=== PATIENT | female | born 1970 | race Caucasian/White ===

== ENCOUNTER 2016-11-14 10:17 | Inpatient (IN) | payer OTHER ==
[~2016-11-14] VITALS: Ht 149.9 cm; Wt 92.0 kg
[2016-11-24] MEDS ORDERED: PROP40TA3 PO (15:10)
[2016-11-24] MEDS ORDERED: GABA300C5 PO (15:10)
[2016-11-24] MEDS ORDERED: VENL75TA PO (15:10)
[2016-11-24] MEDS ORDERED: TOPA100T11 PO (15:10)
[2016-11-24] MEDS ORDERED: ZOCO40TA PO (15:10)
[2016-11-24] MEDS ORDERED: PHEN1TAB PO (15:10)
[2016-11-24] MEDS ORDERED: CHOL1TAB16 PO (15:10)
[2016-11-24] MEDS ORDERED: FEXO180T PO (15:10)
[2016-11-24] MEDS ORDERED: IMIT50TA PO (15:17)
[2016-11-27] MEDS ORDERED: LACTATED RINGER'S 1000 ML IV SCH (06:30)
[2016-11-27] MEDS ORDERED: SCOPOLAMINE 1.5 MG PATCH T-DERMAL SCH (06:30)
[2016-11-27] MEDS ORDERED: INSULIN HUMAN REGULAR 1,000 UNITS/10 ML VIAL SQ PRN (06:30)
[2016-11-27] MEDS ORDERED: ACETAMINOPHEN 1000 MG/100 ML VIAL IV SCH (06:30)
[2016-11-27] MEDS ORDERED: SODIUM CHLORID 0.9% 500 ML IV SCH (06:30)
[2016-11-27] MEDS ORDERED: APREPITANT 40 MG CAP PO SCH (06:30)
[2016-11-27] MEDS ORDERED: ONDANSETRON HCL 4 MG/2 ML VIAL IV PUSH SCH (06:30)
[2016-11-27] MEDS ORDERED: METOPROLOL TARTRATE 25 MG TAB PO PRN (06:30)
[2016-11-27] MEDS ORDERED: ceFAZolin 2 GM PREMIX 50 ML IV SCH (06:30)
[2016-11-27 07:08] VITALS: BP 120/73; PULSE 69; RESP 20; TEMP 97.9; O2SAT 98
[2016-11-27] MEDS ORDERED: FAMOTIDINE 20 MG/2 ML VIAL ONE (07:55)
[2016-11-27] MEDS ORDERED: MIDAZOLAM HCL 2 MG/2 ML VIAL ONE ×2 (07:55→10:04)
[2016-11-27] MEDS ORDERED: metroNIDAZOLE 500 MG INJ 100 ML IV ONE (08:38)
[2016-11-27] MEDS ORDERED: BUPIVACAINE/EPINEPHRINE 0.25% 50 ML VIAL INFIL ONE (08:43)
[2016-11-27] MEDS ORDERED: METHYLENE BLUE 10 MG/ML VIAL NG ONE (09:00)
[2016-11-27] MEDS: D5-1/2 NS + KCL 20 MEQ INJ 1,000 ML IV SCH ×4 (09:25→20:53)
[2016-11-27] MEDS ORDERED: Post-op Orders (for Pharmacy) MISC XX ONE (09:30)
[2016-11-27] MEDS ORDERED: diphenhydrAMINE HCL ELIXIR 12.5 MG/5 ML CUP PO PRN (09:30)
[2016-11-27] MEDS ORDERED: SODIUM CHLORIDE 0.9% FLUSH 5 ML FLUSH IVF PRN (09:30)
[2016-11-27] MEDS ORDERED: ENALAPRILAT 1.25 MG/ML VIAL IV PUSH PRN (09:30)
[2016-11-27] MEDS ORDERED: diphenhydrAMINE HCL 50 MG/ML VIAL IV PRN (09:30)
[2016-11-27] MEDS ORDERED: ONDANSETRON HCL 4 MG/2 ML VIAL IV PRN (09:30)
[2016-11-27] MEDS ORDERED: MORPHINE SULFATE 30 MG/30 ML PCA IV SCH (09:30)
[2016-11-27] MEDS ORDERED: ACETAMINOPHEN 325MG/HYDROcodone 7.5MG/15ML UDC PO PRN ×2 (09:30)
[2016-11-27] MEDS ORDERED: NALOXONE HCL 0.4 MG/ML AMP IV PRN (09:30)
[2016-11-27] MEDS ORDERED: DO NOT ADM ANY ANTICOAGULANT DRUGS XX PRN (09:56)
[2016-11-27] MEDS ORDERED: *PROMETHAZINE 25 MG/ML VIAL PERIprocedural use ONLY ONE (10:25)
[2016-11-27] MEDS: RESP: ALBUTEROL 2.5 MG/3 ML NEB (SCH) INH ×3 (10:40→19:19)
[2016-11-27] MEDS ORDERED: PROPOFOL 200 MG/20 ML AMP IV ONE (10:48)
[2016-11-27] MEDS ORDERED: NEOSTIGMINE 3 MG/3 ML SYR IV ONE (10:48)
[2016-11-27] MEDS ORDERED: ONDANSETRON HCL 4 MG/2 ML VIAL IV PUSH ONE (10:48)
[2016-11-27] MEDS ORDERED: ePHEDrine/NS 25 MG/5 ML SYR IV ONE (10:48)
[2016-11-27] MEDS: METOCLOPRAMIDE HCL 10 MG/2 ML VIAL IVS SCH ×3 (10:51→20:53)
[2016-11-27] MEDS ORDERED: GLYCOPYRROLATE 0.2 MG/ML VIAL ONE (11:27)
[2016-11-27] MEDS ORDERED: GLYCOPYRROLATE 0.2 MG/ML VIAL IV ONE (12:00)
[2016-11-27 12:52] VITALS: BP 114/71; PULSE 73; RESP 17; TEMP 95.3; O2SAT 97
[2016-11-27] MEDS ORDERED: ACETAMINOPHEN 1000 MG/100 ML VIAL IV PRN (13:00)
[2016-11-27] MEDS: PCA - TOTAL MG MORPHINE DELIVERED PER SHIFT SCH ×2 (14:00→21:01)
[2016-11-27 16:00] VITALS: BP 118/53; PULSE 74; RESP 16; TEMP 94.3; O2SAT 97
[2016-11-27] MEDS: ONDANSETRON HCL 4 MG/2 ML VIAL IV PRN (17:09)
[2016-11-27 20:35] VITALS: BP 123/72; PULSE 82; RESP 17; TEMP 98.2; O2SAT 93
[2016-11-27] MEDS: SODIUM CHLORIDE 0.9% FLUSH 5 ML FLUSH IVF SCH (20:53)
[2016-11-28] VITALS (10 sets, daily range): BP systolic 113–138; BP diastolic 63–77; PULSE 71–84; RESP 15–20; TEMP 96.5–99; O2SAT 93–97
[2016-11-28] MEDS: RESP: ALBUTEROL 2.5 MG/3 ML NEB (SCH) INH ×7 (00:24→23:54)
[2016-11-28] MEDS: D5-1/2 NS + KCL 20 MEQ INJ 1,000 ML IV SCH ×4 (01:03→17:25)
[2016-11-28] MEDS: METOCLOPRAMIDE HCL 10 MG/2 ML VIAL IVS SCH (04:44)
[2016-11-28] MEDS: SUCRALFATE 1 GM/10 ML CUP PO SCH ×3 (04:44→16:39)
[2016-11-28] MEDS: PCA - TOTAL MG MORPHINE DELIVERED PER SHIFT SCH ×3 (04:46→22:00)
[2016-11-28] MEDS: SODIUM CHLORIDE 0.9% FLUSH 5 ML FLUSH IVF SCH ×2 (09:00→22:48)
[2016-11-28] MEDS: PANTOPRAZOLE SOD 40 MG DELAYED RELEASE TAB PO SCH (09:00)
[2016-11-28] MEDS: ENOXAPARIN SODIUM 40 MG/0.4 ML SYRINGE SQ SCH (09:08)
[2016-11-28] MEDS: PANTOPRAZOLE SODIUM 40 MG VIAL IVP SCH (09:09)
[2016-11-28] MEDS: ONDANSETRON HCL 4 MG/2 ML VIAL IV PRN ×2 (09:09→16:40)
[2016-11-28 10:57] LABS: AUTOMATED NEUTROPHIL # 11.2 TH/MM3 (1.8-7.7); BASOPHIL % 0.3 % (0.0-2.0); EOSINOPHIL % 0.1 % (0.0-4.0); HEMATOCRIT 44.3 % (35.0-46.0); HEMO FLAGS DIFF FINAL; LYMPH % 10.8 % (9.0-44.0); LYMPHOCYTE # 1.5 TH/MM3 (1.0-4.8); MEAN CELL VOLUME 88.5 FL (80.0-100.0); MEAN CORPUSCULAR HEMOGLOBIN 29.1 PG (27.0-34.0); MEAN CORPUSCULAR HGB CONC 32.9 % (32.0-36.0); MONO % 8.6 % (0.0-8.0); NEUT % 80.2 % (16.0-70.0); PLATELET COUNT 422 TH/MM3 (150-450); RED BLOOD COUNT 5.01 MIL/MM3 (4.00-5.30); RED CELL DISTRIBUTION WIDTH 13.5 % (11.6-17.2)
[2016-11-28 11:20] LABS: BICARBONATE 18.6 MEQ/L (21.0-32.0); POTASSIUM 3.8 MEQ/L (3.5-5.1)
[2016-11-28] MEDS: METOCLOPRAMIDE HCL 10 MG/2 ML VIAL IVS PRN ×2 (13:17→22:49)
[2016-11-28] MEDS ORDERED: SUMAtriptan SUCCINATE 50 MG TAB PO PRN (14:15)
--- NOTE | 2016-11-28 15:54 | HHI.PR ---
Subjective Subjective Notes pt denies cp sob c/o nausea difficulty with liquids Objective Vitals/I&O Vital Signs Date Time Temp Pulse Resp B/P Pulse Ox O2 Delivery O2 Flow Rate FiO2 11/28/16 15:14 93 21 11/28/16 12:00 98.0 76 17 138/74 11/28/16 08:05 Nasal Cannula 11/28/16 04:27 2.00 Labs Laboratory Tests Test 11/28/16 10:37 White Blood Count 14.0 Red Blood Count 5.01 Hemoglobin 14.6 Hematocrit 44.3 Mean Corpuscular Volume 88.5 Mean Corpuscular Hemoglobin 29.1 Mean Corpuscular Hemoglobin 32.9 Concent Red Cell Distribution Width 13.5 Platelet Count 422 Mean Platelet Volume 7.9 Neutrophils (%) (Auto) 80.2 Lymphocytes (%) (Auto) 10.8 Monocytes (%) (Auto) 8.6 Eosinophils (%) (Auto) 0.1 Basophils (%) (Auto) 0.3 Neutrophils # (Auto) 11.2 Lymphocytes # (Auto) 1.5 Monocytes # (Auto) 1.2 Eosinophils # (Auto) 0.0 Basophils # (Auto) 0.0 CBC Comment DIFF FINAL Differential Comment Sodium Level 138 Potassium Level 3.8 Chloride Level 109 Carbon Dioxide Level 18.6 Anion Gap 10 Blood Urea Nitrogen 4 Creatinine 0.94 Estimat Glomerular Filtration 64 Rate Random Glucose 138 Calcium Level 8.5 Magnesium Level 2.0 Abdomen: Post-op tenderness Wound Wound : Wound Location: Abdomen Appearance: Clean & Dry A/P Assessment and Plan S/P lap sleeves normal post op changes follow protocol Zafar Sorto MD Nov 28, 2016 15:54
[2016-11-28] MEDS: GABAPENTIN 300 MG CAP PO SCH ×3 (16:39→22:48)
[2016-11-28] MEDS: PROPRANOLOL HCL 40 MG TAB PO SCH (16:39)
[2016-11-28] MEDS: TOPIRAMATE 100 MG TAB PO SCH (22:48)
[2016-11-29] VITALS: BP 126/75; PULSE 77; RESP 20; TEMP 98.9; O2SAT 96
[2016-11-29] MEDS: RESP: ALBUTEROL 2.5 MG/3 ML NEB (SCH) INH ×2 (03:30→07:56)
[2016-11-29] MEDS: D5-1/2 NS + KCL 20 MEQ INJ 1,000 ML IV SCH (04:07)
[2016-11-29] MEDS: ONDANSETRON HCL 4 MG/2 ML VIAL IV PRN ×2 (04:08→11:17)
[2016-11-29] MEDS: PCA - TOTAL MG MORPHINE DELIVERED PER SHIFT SCH (04:11)
[2016-11-29] MEDS: SUCRALFATE 1 GM/10 ML CUP PO SCH ×3 (05:21→13:26)
[2016-11-29 07:45] VITALS: BP 124/77; PULSE 80; RESP 18; TEMP 99.5; O2SAT 95
[2016-11-29 07:56] VITALS: O2SAT 99
[2016-11-29] MEDS: SODIUM CHLORIDE 0.9% FLUSH 5 ML FLUSH IVF SCH (09:00)
[2016-11-29] MEDS ORDERED: VENLAFAXINE HCL 75 MG TAB PO SCH (09:00)
[2016-11-29] MEDS: PANTOPRAZOLE SODIUM 40 MG VIAL IVP SCH (09:00)
[2016-11-29] MEDS: METOCLOPRAMIDE HCL 10 MG/2 ML VIAL IVS PRN (09:19)
[2016-11-29] MEDS: ENOXAPARIN SODIUM 40 MG/0.4 ML SYRINGE SQ SCH (09:26)
[2016-11-29] MEDS: GABAPENTIN 300 MG CAP PO SCH ×2 (09:27→13:26)
[2016-11-29] MEDS: PROPRANOLOL HCL 40 MG TAB PO SCH ×2 (09:27→13:26)
[2016-11-29] MEDS: PANTOPRAZOLE SOD 40 MG DELAYED RELEASE TAB PO SCH (09:27)
[2016-11-29] MEDS: TOPIRAMATE 100 MG TAB PO SCH (09:38)
--- NOTE | 2016-11-29 11:51 | HHI.PR ---
Subjective Subjective Notes emesis last night nausea better today Objective Vitals/I&O Vital Signs Date Time Temp Pulse Resp B/P Pulse Ox O2 Delivery O2 Flow Rate FiO2 11/29/16 07:56 99 21 11/29/16 07:45 99.5 80 18 124/77 11/28/16 08:05 Nasal Cannula 11/28/16 04:27 2.00 Abdomen: Post-op tenderness Extremities: Perfused Wound Wound : Wound Location: Abdomen Appearance: Clean & Dry A/P Assessment and Plan S/P lap sleeves normal post op changes doing better d/c home today Zafar Sorto MD Nov 29, 2016 11:51
[2016-11-29 12:00] VITALS: BP 131/72; PULSE 70; RESP 18; TEMP 96.4; O2SAT 97
[2016-11-29 16:00] VITALS: BP 123/62; PULSE 72; RESP 20; TEMP 95.9; O2SAT 98
--- NOTE | 2016-11-30 07:15 | MP ---
cc: ESTEPHANIA SORTO DATE OF 1970 DATE OF OPERATION 11/27/2016 PREOPERATIVE DIAGNOSIS Morbid obesity with a BMI of 41, complicated by essential hypertension, obstructive sleep apnea, hyperlipidemia. POSTOPERATIVE DIAGNOSIS Morbid obesity with a BMI of 41, complicated by essential hypertension, obstructive sleep apnea, hyperlipidemia. PROCEDURE Laparoscopic vertical sleeve gastrectomy over a 36-[place] ViSiGi. SURGEON Estephania Sorto MD ANESTHESIA General endotracheal anesthesia. ESTIMATED BLOOD LOSS Scant. SPECIMEN None. COMPLICATIONS None. PROCEDURE IN DETAIL The patient was brought to the operating room and placed on the operating table in supine position, bilateral sequential inflation device placed on lower extremities. General anesthesia was instituted. Antibiotics was initiated. The abdomen was prepped and draped sterilely. A point 15 cm distal to the xiphoid in the midline was anesthetized with 0.25% Marcaine with epinephrine. A skin incision was made, 5-mm OptiView port placed under direct vision and pneumoperitoneum created. Under direct vision, three 5-mm left upper quadrant, a 15-mm right upper quadrant, 5-mm right upper quadrant ports placed. Prior to placement of all ports the skin and peritoneum were anesthetized with 0.25% Marcaine with epinephrine. The patient was placed in reverse Trendelenburg position left side up, the Noemy-Flex retractor was placed. The left lobe of the liver was retracted. The vasculature along the greater curvature of the stomach was using harmonic scalpel starting a distance 5-cm proximal to the pylorus and carried towards the angle of His. The angle of His was taken down bluntly. Posterior ligamentous attachments were sharply . A 36-[place] ViSiGi bougie was placed at the start of the case, was placed on suction. Division of the stomach started 5 cm proximal to the pylorus and carried towards the angle of His to completely excise approximately 80% of the stomach. This was performed using an [place] Flex stapler at the pylorus. The first firing was with a black load, followed by a green load and four gold loads. All staple loads were reinforced with SeamGuard. A distance of 2 cm was left from the angle incisura and the staple line and a distance of 1 cm left from the GE junction and the staple line. The pylorus was then occluded, methylene blue tinged saline was instilled. There was no evidence of extravasation. The gastrocolic ligament was then sutured to the posterior leaflet of the SeamGuard using a 2-0 Vicryl suture in a running manner. Bleeding points were controlled with Evicel. The excised stomach was removed from the peritoneal cavity through the 15-mm port site in an Endopouch. The fascia at the 15-mm port site was approximated with 0 Vicryl suture. The CO2 was then released, all ports were removed, all skin incisions closed with 4-0 Monocryl. The abdominal wall was cleaned. A sterile dressing was placed. The patient was awakened and taken to the recovery room. MD CAROL Clements/CHEMO /9:30 AM /7:07 AM
== END 2016-11-29 17:22 | disposition home or self-care (01) | DRG 621 ==
LOC: HSDI 11-27 06:04 → N07B 11-27 12:31
PROVIDERS: ADMIT Surgery; ATTEND Surgery
PROC: 0DB64Z3 Excision of Stomach, Percutaneous Endoscopic Approach, Vertical (ICD-10-PCS; principal; 2016-11-27 08:09)
DX: E66.01 Morbid (severe) obesity due to excess calories (principal); I10 Essential (primary) hypertension; Z68.41 Body mass index [BMI] 40.0-44.9, adult; G47.33 Obstructive sleep apnea (adult) (pediatric); E78.5 Hyperlipidemia, unspecified
CPT/HCPCS: 80048; 83735; 85025; 94150; 94640; 94664; C9113; J0131; J1650; J2250; J2270; J2405; J2550; J2710; J2765; J3010; J3480; J7120; J7613; J8501